=== PATIENT | male | born 1990 | race Caucasian/White ===

== ENCOUNTER → 2017-04-15 | Outpatient (CLI) | payer OTHER ==
--- NOTE | 2017-04-15 13:37 | DI ---
PA /LATERAL CHEST X-RAY, 04/15/2017 1:01 PM : Clinical History: Acute bilateral thoracic back pain Previous Exam: None at this facility. The thoracic spine demonstrates anatomic alignment without fractures. There is no infiltrate nor effu rohith. The cardiomediastinum is unremarkable. Heart size is normal. Lungs are clear. There are no pulmonary nodules. IMPRESSION: Normal thoracic spine.
--- NOTE | 2017-04-15 13:40 | DI ---
XR T-SPINE 3VW,04/15/2017 12:55 PM: Clinical History: Acute bilateral thoracic back pain. Previous Exam: None at this facility. Findings: AP and lateral views of the thoracic spine are obtained, and demonstrate anatomic alignment without f ractures. The lungs are clear. The cardiomediastinum is unremarkable. Impression: Normal thoracic spine.
[2017-04-15 14:07] LABS: HEMATOCRIT 48.3 % (42.0-52.0); HEMOGLOBIN 16.8 g/dL (14.0-18.0); RED BLOOD COUNT 5.75 10^6/uL (4.70-6.10)
[2017-04-15 14:08] LABS: BASOPHILS # (AUTO) 0.11 10*3/UL; BASOPHILS % (AUTO) 0.9 % (0-1); EOSINOPHILS # (AUTO) 0.09 10*3/UL; EOSINOPHILS % (AUTO) 0.7 % (0-8); LYMPHOCYTES # (AUTO) 2.93 10*3/uL; MEAN CORPUSCULAR HEMOGLOBIN 29.2 PG (27-31); MEAN CORPUSCULAR HGB CONC 34.8 g/dL (33-37); MEAN PLATELET VOLUME 11.5 FL (7.4-12.2); MONOCYTES # (AUTO) 0.92 10*3/UL (0.3-0.8); MONOCYTES % (AUTO) 7.2 % (5-15); NEUTROPHILS # (AUTO) 8.64 10*3/UL; NEUTROPHILS % (AUTO) 67.9 % (50-80); PLATELET MORPHOLOGY COMMENT NORMAL MORPHOLOGY (NORM); RBC MORPHOLOGY COMMENT NORMAL MORPHOLOGY (NORM); WBC MORPHOLOGY COMMENT NORMAL MORPHOLOGY (NORM)
[2017-04-15 14:20] LABS: BLOOD UREA NITROGEN 9 mg/dL (7-22); BUN/CREATININE RATIO 11.25 (6-20); C-REACTIVE PROTEIN 2.8 mg/dL (0.0-0.9); CALCIUM 9.7 mg/dL (8.7-10.7); EST GLOMERULAR FILTRATION > 60 (>60 ml/min/1.73m(2)); SERUM ALBUMIN 4.3 g/dL (3.5-4.8)
--- NOTE | 2017-04-15 14:38 | DI ---
XR L-SPINE 2-3 VW,04/15/2017 12:55 PM: Clinical History: Low back pain Previous Exam: None at this facility. Findings: Views of the lumbar spine are obtained, and demonstrate anatomic alignment without fractures. A nonob structive bowel gas pattern is seen. No pathologic calcifications are seen. There is no evidence of spondylolysis nor spondylolisthesis. Impression: Normal lumbar spine.
== END ==
LOC: MOB RAD 12:57
PROVIDERS: ATTEND Physician Assistant
DX: M54.6 Pain in thoracic spine (principal); M54.5 Low back pain; Z72.0 Tobacco use
CPT/HCPCS: 36415; 71020; 72072; 72100; 80053; 85025; 86140